=== PATIENT | female | born 1975 | race Caucasian/White ===

== ENCOUNTER → 2018-04-14 | Outpatient (CLI) | payer BC ==
[~2018-04-14] MED LIST: BENTYL20 MG PO; COMPAZINE10 MG PO; IMODIUM A-D2 M2 PO; ZOFRAN8 MG PO
== END | disposition home or self-care (01) ==
LOC: CDC 10:12
DX: Z01.810 Encounter for preprocedural cardiovascular examination (principal); C50.511 Malignant neoplasm of lower-outer quadrant of right female breast
CPT/HCPCS: 93000

== ENCOUNTER 2018-05-03 06:24 | Day surgery (SDC) | payer BC ==
[~2018-05-03] VITALS: Ht 174 cm; Wt 57.1 kg
[2018-05-03 07:33] VITALS: BP 130/78
[2018-05-03] MEDS ORDERED: HYDROCODON-ACE1 EAC7 PO (13:23)
[2018-05-03 14:05] VITALS: BP 127/75
[2018-05-03 14:47] VITALS: BP 117/71
== END 2018-05-03 14:50 | disposition home or self-care (01) ==
LOC: NUC 06:24 → SDC 06:24 → NUC 08:00 → SDC 08:00
DX: C50.611 Malignant neoplasm of axillary tail of right female breast (principal); Z17.0 Estrogen receptor positive status [ER+]
CPT/HCPCS: 78195; 88305; 88307; 88341 TC; 88342 TC; A9541; J0131; J0690; J1100; J2250; J2405; J2765; J3010; S0020